=== PATIENT | female | born 1970 ===

== ENCOUNTER 2023-07-07 09:25 | Outpatient (AMB) | payer OTHER, SELFPAY ==
[2023-07-07 09:29] VITALS: BP 122/70; PULSE 87; TEMP 36.8; O2SAT 98; BMI 31.4
--- NOTE | 2023-07-07 09:29 | AM.OFFWIN_ITS ---
Intake Vital Signs 07/07/23 09:29 Height 4 ft 10 in Weight 150 lb 4 oz BMI 31.4 BP 122/70 Blood Pressure Location Lt brachial Position Sitting Pulse 87 Pulse Source Pulse Oximeter Temp 98.2 F Temp Source Oral Pulse Oximetry (%) 98 Oxygen Delivery Method Room Air Intake Visit Reasons: [employer] Rib pain, congestion, Cough Intake Note: Patient is here with cough/on and off since June 16, cough, with mucous sometimes, bloody on Sunday, was green, now clear, ribs hurt from coughing. Patient Tobacco Use Status: Never used Tobacco Allergies Penicillins Allergy (Mild, Verified 07/07/23 09:35) rash Sulfa (Sulfonamide Antibiotics) Allergy (Unknown, Verified 07/07/23 09:35) Unknown prednisone Allergy (Mild, Uncoded 07/07/23 09:35) body swelling tetracyline Allergy (Mild, Uncoded 07/07/23 09:35) Rash Do you need a note to return to daycare/school/sports/work: Yes HPI [employer] Rib pain, congestion, Cough HPI Details New patient who comes to the walk-in today complaining of persistent cough since getting respiratory infection almost 3 weeks ago. Cough has been worsening for the past week, productive in nature with phlegm and chest congestion initially, but that is resolving. She states that sometimes the coughing fits are uncontrolled in cause transient chest discomfort. She currently has no chest pain, shortness of breath, fever or chills, nausea vomiting or diarrhea, myalgias or malaise, dizziness weakness, or significant symptoms. [facility] Social History Patient Tobacco Use Status: Never used Tobacco Review of Systems Const All systems reviewed & are unremarkable except as noted in HPI and below Physical Exam Vital Signs: Last Vital Signs Temp 98.2 F 07/07/23 09:29 Pulse 87 07/07/23 09:29 BP 122/70 07/07/23 09:29 Pulse Ox 98 07/07/23 09:29 Oxygen Delivery Method Room Air 07/07/23 09:29 BMI result Body Mass Index 31.4 Const General: cooperative, healthy appearing, comfortable, no acute distress, alert, awake, Physically active and well groomed; No anxious, diaphoretic, intoxicated appearing, poor hygiene or tired appearing Nutritional Appearance: average body habitus Orientation/consciousness: oriented to person Limitations: no limitations HEENT Head: Yes normal to inspection, Yes normocephalic and Yes atraumatic Ears: hearing grossly normal bilaterally, external ears normal, TM's normal bilaterally and EAC's normal General nose exam: Normal external nose present, Normal nares present, No nasal polyps present, Normal nasal mucous membranes and turbinates present, Normal septum present and No nasal discharge present Face and sinus: Yes normal facial exam, Yes sinuses nontender and Yes face symmetric Mouth: Normal oral and palatal mucosa present, lip normal and tongue normal Throat: Yes posterior oropharynx normal, No peritonsillar mass, No postnasal drainage, No uvular edema and No cobblestoning Eyes General: appearance normal, both eyes and all related structures Neck Neck: Yes normal visual inspection, Yes no lymphadenopathy, Yes trachea midline, Yes supple and No anterior neck swelling Resp Effort & Inspection: normal respiratory effort, able to speak in complete sentences, no audible wheezes, Actively coughing, no grunting, not labored, no nasal flaring, no retractions and symmetric chest movement Auscultation: clear to auscultation bilaterally, no crackles, no rales, no rhonchi, no wheezes, lung sounds not diminished and No rub present Cardio Palpation: normal PMI Rate: regular rate Rhythm: regular rhythm Heart sounds: S1 normal heart sound present and S2 normal heart sound present Skin Other: Good color, warm and dry Neuro General: oriented to person Psych Appearance: grossly normal Mental Status: mental status grossly normal Speech and movement: Normal speech and movement present Affect: normal affect Attitude: cooperative Thought process: Normal thought process present Insight: Good insight present (Psych) Judgement: Good judgement present (Psych) Assessment & Plan Assessment & Plan (1) Acute bronchitis: Code(s): J20.9 - Acute bronchitis, unspecified Qualifiers: Bronchitis organism: unspecified organism Qualified Code(s): J20.9 - Acute bronchitis, unspecified Plan: Patient is 3 weeks out from acute respiratory infection/viral syndrome and did not test for COVID at the time. She states that she has been coughing productive phlegm, which has resolved, however she has developed uncontrolled coughing fits that are mostly dry at this time. She currently is stable, with no dyspnea or work of breathing. Wrote her for a tapered course of prednisone and azithromycin, and she can follow up if symptoms persist or worsen. She knows to go to the emergency department with worrisome symptoms Medications: New azithromycin take 500 mg today (day 1), then 250 mg for 4 days (days 2-5) PO 6 tabs 0RF prednisone then take 3 tabs for 3 days, then 2 tabs for 3 days, then 1 tab for 3 days. 40 mg (4 x 10 mg) PO DAILY 30 tabs 0RF 3 days Coding Level of Care Code New Pt Level 4 (48533) Diagnoses Acute bronchitis, unspecified organism J20.9 Bronchitis organism: unspecified organism
== END 2023-07-07 10:23 | disposition home or self-care (01) ==
PROVIDERS: Visit Provider Physician Assistant Medical
DX: J20.9 Acute bronchitis, unspecified (principal)
CPT/HCPCS: 99204